=== PATIENT | female | born 1985 | race African-American/Black ===

== ENCOUNTER 2017-07-30 13:22 | Emergency (ER) | payer MEDICAID ==
[2017-07-30 13:39] VITALS: BP 117/77
[2017-07-30 14:14] LABS: APPEARANCE,URINE CLOUDY; BILIRUBIN,URINE NEGATIVE (NEGATIVE); COLOR,URINE YELLOW; GLUCOSE, URINE NEGATIVE (NEGATIVE); KETONES,URINE TRACE mg/dL (NEGATIVE); LEUKOCYTE ESTERASE,URINE LARGE (NEGATIVE); NITRITE,URINE NEGATIVE (NEGATIVE); PROTEIN,URINE 100 mg/dL (NEGATIVE); URINE SPECIFIC GRAVITY 1.015; UROBILINOGEN,URINE NEGATIVE mg/dL (<2.0)
--- NOTE | 2017-07-30 14:46 | ER Document Report ---
HPI - HPI Pain Level: 5 Notes: Patient is a 32-year-old female no significant past medical history who presents to the ED complaining of urinary burning, urgency, frequency, voiding small amounts 2-3 days. Patient states that she still eating and drinking without difficulties. She is having normal bowel movements. She has not had any back or flank pain. She denies any drug allergies, smoking, IV drug use. She has no other concerns or complaints at this time. Patient states that she does not have any concern of STD or STI at this time. Denies any headache, fever, neck pain, URI, sore throat, chest pain, palpitations, syncope, cough, shortness of breath, wheeze, dyspnea, abdominal pain, nausea/vomiting/diarrhea, loss of control of bowel or bladder, numbness/tingling, saddle anesthesia, muscle paralysis/weakness, or rash. - ROS Systems Reviewed and Negative: Yes All other systems reviewed and negative - REPRODUCTIVE Reproductive: DENIES: : Past Medical History - Social History Smoking Status: Never Smoker Family History: Reviewed & Not Pertinent Patient has suicidal ideation: No Patient has homicidal ideation: No Pulmonary Medical History: Denies: Hx Tuberculosis Neurological Medical History: Reports: Hx Migraine Renal/ Medical History: Denies: Hx Peritoneal Dialysis Musculoskeltal Medical History: Denies Hx Arthritis Past Surgical History: Reports: Hx Hysterectomy - 01/2013 - Immunizations Immunizations up to date: Yes Hx Diphtheria, Pertussis, Tetanus Vaccination: Yes Vertical Provider Document - CONSTITUTIONAL Agree With Documented VS: Yes Notes: PHYSICAL EXAMINATION: GENERAL: Well-appearing, well-nourished and in no acute distress. LUNGS: Breath sounds clear to auscultation bilaterally and equal. No wheezes rales or rhonchi. HEART: Regular rate and rhythm without murmurs, rubs, gallops. ABDOMEN: Soft, nontender, nondistended abdomen. No guarding, no rebound. No masses appreciated. Normal bowel sounds present. No CVA tenderness bilaterally. Extremities: No cyanosis, clubbing, or edema b/l. Peripheral pulses 2+. Capillary refill less than 3 seconds. NEUROLOGICAL: Normal speech, normal gait. Normal sensory, motor exams PSYCH: Normal mood, normal affect. SKIN: Warm, Dry, normal turgor, no rashes or lesions noted. - INFECTION CONTROL TRAVEL OUTSIDE OF THE [place] IN LAST 30 DAYS: No Course - Re-evaluation Re-evalutation: 07/30/17 14:51 Patient is an afebrile, well-hydrated, 32-year-old female who presents to the ED with an acute UTI. Vitals are acceptable. PE is otherwise unremarkable. See urinalysis results. Urine cultures pending. No other labs or imaging warranted at this time based on H&P. Patient is tolerating p.o. without difficulties. She has no significant tachycardia, tachypnea, or hypoxia. Patient's abdomen is otherwise soft and nontender. Low suspicion for any severe dehydration, sepsis, meningitis, acute abdomen, or other systemic emergent condition at this time. I will send her home with prescription for Cipro. Conservative measures otherwise for symptoms. Recheck with your PCM in 3-5 days. Return to the ED with any worsening/concerning symptoms otherwise as reviewed discharge. Patient is in agreement. - Vital Signs Vital signs: Temp Pulse Resp BP Pulse Ox 98.1 F 79 20 117/77 100 07/30/17 13:35 07/30/17 13:35 07/30/17 13:35 07/30/17 13:35 07/30/17 13:35 - Laboratory Laboratory results interpreted by me: 07/30/17 13:23 Urine Protein 100 H Urine Ketones TRACE H Urine Blood MODERATE H Ur Leukocyte Esterase LARGE H Discharge - Discharge Clinical Impression: UTI (urinary tract infection) Qualifiers: Urinary tract infection type: site unspecified Hematuria presence: with hematuria Qualified Code(s): N39.0 - Urinary tract infection, site not specified Condition: Stable Disposition: HOME, SELF-CARE Instructions: Urinary Tract Infection ([facility]) Additional Instructions: Push fluids (i.e. water, cranberry juice) Proper hygenic technique Keep the skin clean Tylenol/ibuprofen as needed Take medications as directed F/u with your PCM in 3-5 days for a recheck Consider consult with a Urologist for ongoing/worsening symptoms. Return to the ED with any worsening symptoms and/or development of fever, headache, chest pain, palpitations, syncope, shortness of breath, trouble breathing, abdominal pain, n/v/d, blood in stool/urine, loss of control of bowel /bladder, urinary retention, or other worsening symptoms that are concerning to you. Prescriptions: Ciprofloxacin HCl [Cipro 500 mg Tablet] 500 mg PO BID #14 tablet Referrals: [facility] [Provider Group] - Follow up as needed
== END 2017-07-30 14:50 | disposition home or self-care (01) ==
LOC: ER 13:22
DX: N39.0 Urinary tract infection, site not specified (principal); Z90.710 Acquired absence of both cervix and uterus
CPT/HCPCS: 81001; 87086; 87088; 87186; 99283

== ENCOUNTER 2017-10-09 23:59 | Emergency (ER) | payer MEDICAID ==
[2017-10-10] MEDS ORDERED: LIDOCAINE 4%/TETRACAINE 0.5%/EPI 0.18% 5 ML TOPICAL SOLN TOP ONE (01:11)
--- NOTE | 2017-10-10 01:13 | ER Document Report ---
ED Head/Face/Scalp Injury - General Chief Complaint: Nose Problem Stated Complaint: FALL,NOSE INJURY Time Seen by Provider: 10/10/17 00:58 Mode of Arrival: Ambulatory Information source: Patient Notes: 32-year-old female presents to ED for complaint of pain and lacerations to those after she states she fell off a ladder while hanging up curtains and landed on her nose. She states she has had a broken nose in the past and had surgery on it. Patient denies any loss of consciousness or any other injuries besides the nose injury. Patient is alert and oriented respirations regular and unlabored speaking in full sentences and walks with a even steady gait. TRAVEL OUTSIDE OF THE [place] IN LAST 30 DAYS: No - HPI Patient complains to provider of: Contusion, Injury, Laceration, Pain, Swelling Injury to: Nose Location of problem: Nose Occurred: Just prior to arrival Where: Indoors Timing: Still present Context: Fell, Laceration, Swelling Loss consciousness: No loss of consciousness Remembers: Injury, Coming to hospital - Related Data Allergies/Adverse Reactions: No Known Allergies Allergy (Verified 02/14/14 15:46) Past Medical History - General Information source: Patient - Social History Smoking Status: Current Every Day Smoker Cigarette use (# per day): Yes - 3 Chew tobacco use (# tins/day): No Smoking Education Provided: Yes - 4 min Frequency of alcohol use: None Drug Abuse: None Lives with: Family Family History: Reviewed & Not Pertinent Patient has suicidal ideation: No Patient has homicidal ideation: No - Past Medical History Cardiac Medical History: Reports: None Pulmonary Medical History: Reports: None EENT Medical History: Reports: Nose - nasal fx Neurological Medical History: Reports: Hx Migraine Endocrine Medical History: Reports: None Renal/ Medical History: Reports: None Malignancy Medical History: Reports: None GI Medical History: Reports: None Musculoskeletal Medical History: Reports Hx Musculoskeletal Trauma - nosal fx Skin Medical History: Reports None Psychiatric Medical History: Reports: None Traumatic Medical History: Reports: Hx Fractures - nasal Infectious Medical History: Reports: None Past Surgical History: Reports: Hx Hysterectomy - 01/2013, Hx Nose Surgery - nasal fx repair - Immunizations Immunizations up to date: Yes Hx Diphtheria, Pertussis, Tetanus Vaccination: Yes Review of Systems - Review of Systems Constitutional: No symptoms reported EENT: Nose pain - laceration to bridge of nose Cardiovascular: No symptoms reported Respiratory: No symptoms reported Gastrointestinal: No symptoms reported Genitourinary: No symptoms reported Female Genitourinary: No symptoms reported Musculoskeletal: No symptoms reported Skin: No symptoms reported Hematologic/Lymphatic: No symptoms reported Neurological/Psychological: No symptoms reported -: Yes All other systems reviewed and negative Physical Exam - Vital signs Vitals: Temp Pulse Resp BP Pulse Ox 98.6 F 89 18 127/88 H 96 10/10/17 00:21 10/10/17 00:21 10/10/17 00:21 10/10/17 00:21 10/10/17 00:21 Interpretation: Normal - General General appearance: Appears well, Alert - HEENT Head: Ecchymosis, Open wounds - bridge of nose, Tenderness Eyes: Normal Conjunctiva: Normal Cornea: Normal Eyelashes: Normal Pupils: PERRL Ears: Normal External canal: Normal Tympanic membrane: Normal Sinus: Normal Nasal: Swelling, Other - Tried blood in nasal passage Mouth/Lips: Normal Mucous membranes: Normal Pharynx: Normal Neck: Normal - Respiratory Respiratory status: No respiratory distress Chest status: Nontender Breath sounds: Normal Chest palpation: Normal - Cardiovascular Rhythm: Regular Heart sounds: Normal auscultation Murmur: No - Abdominal Inspection: Normal Distension: No distension Bowel sounds: Normal Tenderness: Nontender Organomegaly: No organomegaly - Back Back: Normal, Nontender - Extremities General upper extremity: Normal inspection, Nontender, Normal color, Normal ROM , Normal temperature General lower extremity: Normal inspection, Nontender, Normal color, Normal ROM , Normal temperature, Normal weight bearing. No: Dejon's sign - Neurological Neuro grossly intact: Yes Cognition: Normal Orientation: AAOx4 Kyle Coma Scale Eye Opening: Spontaneous [place] Coma Scale Verbal: Oriented [place] Coma Scale Motor: Obeys Commands [place] Coma Scale Total: 15 Speech: Normal Motor strength normal: LUE, RUE, LLE, RLE Sensory: Normal - Psychological Associated symptoms: Normal affect, Normal mood - Skin Skin Temperature: Warm Skin Moisture: Dry Skin Color: Normal Skin Turgor: Edematous Location of irregularity: Face - Bridge of nose Irregularity with: Swelling, Tenderness Course - Re-evaluation Re-evalutation: 10/10/17 02:49 X-ray results discussed with patient and patient was instructed to follow-up with primary doctor and a ENT specialist. There is a bilateral nasal bone fracture with superficial lacerations to bilateral sides of the nose. Lacerations were Dermabond and Steri-Stripped shut and patient was given instructions for wound care. Patient was placed on Keflex first dose given in the ER. Patient was discharged home with the [place] dispense pack for pain and instructed on use of ice. - Vital Signs Vital signs: Temp Pulse Resp BP Pulse Ox 98.7 F 94 15 128/88 H 96 10/10/17 02:26 10/10/17 02:26 10/10/17 02:26 10/10/17 02:10/10/17 02:26 - Diagnostic Test Radiology reviewed: Image reviewed, Reports reviewed Discharge - Discharge Clinical Impression: Fall Qualifiers: Encounter type: initial encounter Qualified Code(s): W19.XXXA - Unspecified fall, initial encounter Nasal fracture Qualifiers: Encounter type: initial encounter Fracture type: closed Qualified Code(s): S02.2XXA - Fracture of nasal bones, initial encounter for closed fracture Facial laceration Qualifiers: Encounter type: initial encounter Qualified Code(s): S01.81XA - Laceration without foreign body of other part of head, initial encounter Condition: Stable Disposition: HOME, SELF-CARE Additional Instructions: Fracture of the Nose You have a fractured nose. The examination shows no evidence that the nose needs to be "set" or operated on. However, the physician must recheck the nose once the swelling has decreased. The final decision about straightening of the bones or surgery can be made once the swelling resolves. This usually takes three to five days. Rest in a reclining chair. Cold pack the nose for the next 24 to 36 hours. Do not blow the nose. This may increase the swelling or cause further bleeding. If you have painful swelling inside the nose or exquisite tenderness when the tip of the nose is touched, you should call the doctor at once or return for re-evaluation. You should also contact the doctor if you develop fever, purulent nasal drainage, increasing pain in the face, or problems with vision. Facial Laceration A laceration on the face usually heals quickly. Our treatment goal will be to avoid an unsightly scar or stitch-zuniga. Your cut has been closed with the best techniques to avoid scarring, but a great deal depends on how well you protect the laceration -- and on your inherited tendency to scar. As facial cuts are usually caused by a blunt injury, it's usually best to rest for a day to avoid swelling. Do not allow any bumping or rubbing of the area. Keep the stitches dry. Follow the treatment plan the doctor has discussed with you and DO NOT DELAY getting the stitches out. Once stitches are removed, continue to protect the area from trauma and sunlight (use a sunscreen) for about six months. If any signs of infection occur (swelling, redness, increasing tenderness, red streaks, tender lumps in the neck or near the ear on the side of the laceration, or fever), see the doctor immediately. LACERATION CARE: Your laceration has been sutured to keep the skin edges aligned during healing. The time of suture removal depends on the nature and location of your cut. Please follow the care instructions the doctor has outlined for you and return for further care, according to the schedule you've been given. Keep the wound and dressing clean. Unless you were told otherwise, you may shower daily, blotting the wound dry with a clean, unused towel. At other times, If the dressing gets wet or blood soaked, remove it and blot the wound dry, then reapply a new dressing. Unless you were instructed otherwise, dressings should be changed at least daily. If any signs of infection occur (swelling, redness, drainage, increasing tenderness, red streaks, tender lumps in the armpit or groin above the laceration, or fever), see the doctor immediately. SOAP CLEANSING: Gently wash the wound daily using a mild soap (like Ivory, Phisoderm, Neutrogena). Use warm water, rubbing gently until all debris, ooze, and crusting have been washed from the wound. Allow to dry briefly (about 10 minutes) after cleaning. Repeat this cleansing at least three times a day for the first two days and then once or twice a day. Dermabond (Skin Adhesive Closure) Skin adhesive (such as Dermabond) is a quick-drying glue that remains slightly flexible while it holds wound edges together. It can substitute for stitches on some cuts. The film will usually fall off the skin after 5 to 10 days. Keep the wound area clean and dry. Do not soak or scrub the wound. Don't swim. You can shower briefly after 24 hours. Gently blot the area dry with a soft towel. Don't apply ointments. If there is a dressing, change it immediately if it gets wet. Do not place tape directly over the adhesive film, because the tape may pull the film off your skin as you remove it. Don't bump the wound area. If there's risk of injury, keep the area well- padded. Avoid stretching of the skin. Do not scratch or pick at the adhesive film. Avoid prolonged exposure to sunlight or tanning lamps. Return if there is increasing pain, swelling, redness, or drainage, or if the wound edges seem to open or separate. Care of Steri-Strip Closure Your cut has been closed up with a special surgical tape. For this type of cut, it can replace stitches. You must protect the wound just as you would with stitches, however. For the first few days, keep the wound area completely dry. This also means you should avoid activity which makes you sweat. Do not move the area if motion stretches or wrinkles the strips. Don't allow the area to be bumped -- if bleeding occurs, the blood can make the strips loosen. The strips are somewhat waterproof. After a few days, the physician may allow you to shower. Be sure to ask if it's OK. Do not remove the tape until it peels off by itself. At that time, the wound should be healed. ORAL NARCOTIC MEDICATION: You have been given a norco dispense pack for pain control. This medication is a narcotic. It's best taken with food, as nausea can result if taken on an empty stomach. Don't operate machinery or drive within six hours of taking this medication. Do not combine this medicine with alcohol, or with any medication which can cause sedation (such as cold tablets or sleeping pills) unless you get permission from the physician. Narcotics tend to cause constipation. If possible, drink plenty of fluids and eat a diet high in fiber and fruits. These follow-up with your primary doctor in 3 to days to check the wound healing. FOLLOW-UP CARE: If you have been referred to a physician for follow-up care, call the physician s office for an appointment as you were instructed or within the next two days. If you experience worsening or a significant change in your symptoms, notify the physician immediately or return to the Emergency Department at any time for re-evaluation. Prescriptions: Cephalexin Monohydrate [Keflex 500 mg Capsule] 500 mg PO Q6H 5 Days capsule Forms: Elevated Blood Pressure, Smoking Cessation Education Referrals: JEANA CAMPUZANO PA-C [Primary Care Provider] - Follow up as needed [facility] [Provider Group] - Follow up as needed JEANA RODGERS DO [ASSOCIATE] - Follow up as needed
[2017-10-10] MEDS ORDERED: CEPHALEXIN 500 MG CAPSULE PO ONE (02:10)
[2017-10-10] MEDS ORDERED: HYDROCODONE/ACETAMINOPHEN 5-325 MG (6 TAB/ER DISP) PO PRN (02:18)
--- NOTE | 2017-10-10 02:26 | RADIOLOGY REPORT (SQ) ---
EXAM DESCRIPTION: XR NASAL BONES COMPLETED DATE/TME: 10/10/2017 01:08 CLINICAL HISTORY: 32 years, Female, fall, pain in nose COMPARISON: None. FINDINGS: 2 views of the nasal bones. Bilateral minimally displaced nasal bone fractures. Nasal septum appears midline. Paranasal sinuses are well aerated. Orbits appear intact. IMPRESSION: 1. Minimally displaced bilateral nasal bone fractures. 2010 [employer]- All Rights Reserved
[2017-10-10 02:33] VITALS: BP 128/88
== END 2017-10-10 02:34 | disposition home or self-care (01) ==
LOC: ER 23:59
DX: S02.2XXA Fracture of nasal bones, initial encounter for closed fracture (principal); S01.81XA Laceration without foreign body of other part of head, initial encounter; W11.XXXA Fall on and from ladder, initial encounter; F17.210 Nicotine dependence, cigarettes, uncomplicated
CPT/HCPCS: 99406; 99283; 70160; J3490

== ENCOUNTER 2017-11-20 06:29 | Day surgery (SDC) | payer MEDICAID ==
[2017-11-20] MEDS ORDERED: FENTANYL CITRATE INJ/PF 100 MCG/2 ML AMPUL ONE (06:43)
[2017-11-20] MEDS ORDERED: CARBOXYMETHYLCELLULOSE SOD 0.5% 0.4 ML DROPERETTE ONE (06:43)
[2017-11-20] MEDS ORDERED: MIDAZOLAM 2 MG/2 ML INJ ONE (06:43)
[2017-11-20] MEDS ORDERED: LIDOCAINE 2% INJ-PF (20 MG/ML) 10 ML AMPUL ONE (06:44)
[2017-11-20] MEDS ORDERED: DEXAMETHASONE SOD PHOS INJ 10 MG/1 ML VIAL ONE (06:44)
[2017-11-20] MEDS ORDERED: PROPOFOL INJ 200 MG/20 ML VIAL IV ONE (06:44)
[2017-11-20] MEDS ORDERED: ONDANSETRON HCL INJ/PF 4 MG/2 ML SDV ONE (06:44)
[2017-11-20] MEDS ORDERED: BUPIVACAINE HCL 0.5%/EPI 1:200000 INJ 1.8 ML CARTRIDGE ONE (08:03)
[2017-11-20] MEDS ORDERED: CEFAZOLIN 2 GM/D5W RTU 2 GM/50 ML RTUPB IV PRN (08:16)
--- NOTE | 2017-11-21 15:01 | [facility] OPERATIVE REPORT E ---
[facility] Operative Report NAME: RAMIRO VO AGE: 32Y DATE OF SURGERY: 11/20/2017 ROOM: PREOPERATIVE DIAGNOSES: 1. NASAL FRACTURES. 2. NASAL DEFORMITIES, ACQUIRED. 3. NASAL SEPTAL DEVIATION, ACQUIRED. 4. INFERIOR TURBINATE HYPERTROPHY. 5. NASAL PAIN. POSTOPERATIVE DIAGNOSES: 1. NASAL FRACTURES. 2. NASAL DEFORMITIES, ACQUIRED. 3. NASAL SEPTAL DEVIATION, ACQUIRED. 4. INFERIOR TURBINATE HYPERTROPHY. 5. NASAL PAIN. OPERATION: CLOSED REDUCTION OF NASAL FRACTURES WITH STABILIZATION. SURGEON: JEANA RODGERS D.O. ANESTHESIA: General mask anesthesia. ANESTHESIA STAFF: EMIL Mosqueda ESTIMATED BLOOD LOSS: 1 mL FLUID: 400 mL COMPLICATIONS: None. DRAINS: None. SPONGE COUNT: Verified. MATERIALS FORWARDED SPECIMEN: None. FINDINGS: 1. The patient was noted to have multiple nasal dorsal irregularities involving bone and cartilage. 2. The patient also had multiple scattered scars over the nose, forehead, and face that were from previous injuries, and all appeared to be well healed and were with a variety of hyper and hypopigmentation changes. 3. Nasal septal deviation and no septal hematoma or seroma was noted. 4. Bilateral turbinate hypertrophy. INDICATIONS: This is a 32-year-old -[place] female who was referred by the [place] emergency room for nasal fractures with resulting nasal deformities and nasal pain. The patient was seen and evaluated in the [place] otolaryngology office. 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 She was evaluated in the [place] emergency department. She did not have any other facial injuries or complaint of other pain and there were no other concerns noted in the emergency room except for nasal fractures with resulting nasal deformities. The patient reports that she had previously injured/fractured her nose. This resulted in acquired nasal deformities as well. After extensive discussion with the patient, recommendation and plan was made to proceed with a closed reduction of nasal fractures. The patient was also well aware that, as she was approximately 1 month out from her date of most recent injury to her nose, undergoing a closed reduction of nasal fractures may not result in any improvement. She also did not want to undergo the procedure in the clinic setting, but preferred the procedure be performed in the operating room setting. The procedure and all of its risks and complications were all discussed in detail with the patient. She voiced an understanding of all that was discussed, and was in agreement, and desire to proceed with the procedure. PROCEDURE: The patient was taken to the main operating room and placed on the operating room table in the supine position. Appropriate monitors were placed. Under mask access, general mask anesthesia was induced. The patient underwent a nasal prep with injection of local anesthetic with epinephrine to establish a nasal block. Two Afrin-soaked neuro patties were placed per nasal passage. The patient was then prepped and draped in the usual fashion for nasal surgery/procedures. At this point, the neuro patties were removed followed by use of a Tia elevator to mobilize the bony nasal pyramid. The fracture elements could be palpated and were mobilized with reasonable contour being achieved. At this point, the patient's nose was cleaned and dried followed by placement of Mastisol and Steri-Strips for external stabilization and support. The patient was then returned to the anesthesia staff and was allowed to emerge from general mask anesthesia. The patient was next transported to the post anesthesia recovery unit in stable condition. There were no complications. DICTATING PHYSICIAN: JEANA RODGERS D.O. [id number] PHY#: [id number] ID: [id number] JOB#: [id number] ACCT: [id number] cc:JEANA RODGERS D.O. > MTDD
== END 2017-11-20 10:08 | disposition home or self-care (01) ==
LOC: SC 06:29
PROVIDERS: ATTEND Otolaryngology
DX: S02.2XXA Fracture of nasal bones, initial encounter for closed fracture (principal); W17.89XA Other fall from one level to another, initial encounter; Y93.E9 Activity, other interior property and clothing maintenance; M95.0 Acquired deformity of nose; J34.2 Deviated nasal septum; J34.3 Hypertrophy of nasal turbinates; J34.89 Other specified disorders of nose and nasal sinuses; I10 Essential (primary) hypertension; G47.30 Sleep apnea, unspecified
CPT/HCPCS: 21320; J2250; J3490 ×3; J3010; J2405; J2704; J1100; J0690; 160

== ENCOUNTER 2018-02-11 12:40 | Emergency (ER) | payer MEDICAID ==
[2018-02-11] MEDS ORDERED: LIDOCAINE 5% (700 MG) TRANSDERMAL ADH..PATCH TP ONE (15:57)
[2018-02-11 15:59] LABS: APPEARANCE,URINE CLOUDY; BILIRUBIN,URINE NEGATIVE (NEGATIVE); COLOR,URINE YELLOW; GLUCOSE, URINE NEGATIVE (NEGATIVE); KETONES,URINE NEGATIVE (NEGATIVE); LEUKOCYTE ESTERASE,URINE LARGE (NEGATIVE); NITRITE,URINE POSITIVE (NEGATIVE); PROTEIN,URINE NEGATIVE (NEGATIVE); URINE SPECIFIC GRAVITY 1.013
--- NOTE | 2018-02-11 16:22 | ER Document Report ---
HPI - HPI Time Seen by Provider: 02/11/18 15:20 Pain Level: 4 Notes: Patient is a 32-year-old female who presents with multiple complaints today. Patient complains of right leg pain that has been present since she states she was a little girl. Patient says the pain has been worse since 2007. She states that she has a primary care provider at [facility] however she has not mentioned this to them. Patient also reports dysuria, frequency and urgency. Patient reports she has a history of UTIs in the past, has not had any fevers lately unsure if she has a UTI today. - REPRODUCTIVE Reproductive: DENIES: : Past Medical History - General Information source: Patient - Social History Smoking Status: Never Smoker Frequency of alcohol use: None Drug Abuse: None Family History: Reviewed & Not Pertinent - Past Medical History Cardiac Medical History: Denies: Hx Heart Attack, Hx Hypertension Pulmonary Medical History: Denies: Hx Asthma, Hx Tuberculosis Neurological Medical History: Reports: Hx Migraine. Denies: Hx Cerebrovascular Accident, Hx Seizures Renal/ Medical History: Denies: Hx Peritoneal Dialysis GI Medical History: Denies: Hx Hepatitis, Hx Hiatal Hernia, Hx Ulcer Musculoskeletal Medical History: Denies Hx Arthritis, Reports Hx Musculoskeletal Trauma - nosal fx Traumatic Medical History: Reports: Hx Fractures - nasal Infectious Medical History: Denies: Hx Hepatitis Past Surgical History: Reports: Hx Hysterectomy, Hx Nose Surgery - nasal fx repair. Denies: Hx Mastectomy, Hx Open Heart Surgery, Hx Pacemaker - Immunizations Immunizations up to date: Yes Hx Diphtheria, Pertussis, Tetanus Vaccination: Yes Vertical Provider Document - CONSTITUTIONAL Notes: PHYSICAL EXAMINATION: GENERAL: Well-appearing, well-nourished and in no acute distress. HEAD: Atraumatic, normocephalic. EYES: Pupils equal round extraocular movements intact, conjunctiva are normal. ENT: Nares patent NECK: Normal range of motion LUNGS: No respiratory distress Musculoskeletal: Normal range of motion, mild tenderness to palpation to the right upper thigh on the anterior portion, no enlarged lymph nodes palpable. NEUROLOGICAL: Normal speech, normal gait. PSYCH: Normal mood, normal affect. SKIN: Warm, Dry, normal turgor, no rashes or lesions noted. - INFECTION CONTROL TRAVEL OUTSIDE OF THE [place] IN LAST 30 DAYS: No Course - Re-evaluation Re-evalutation: Patient diagnosed with urinary tract infection based upon the urinalysis results , see labs. Patient be placed on p.o. antibiotics. Patient will also be given lidocaine patches for her leg pain, patient encouraged to follow-up with her primary care provider considering this is been going on since she was a little girl. Patient does not have any risk factors for DVT so a venous Doppler ultrasound is not indicated. - Vital Signs Vital signs: Temp Pulse Resp BP Pulse Ox 98.3 F 76 18 120/88 H 98 02/11/18 13:10 02/11/18 13:10 02/11/18 13:10 02/11/18 13:10 02/11/18 13:10 - Laboratory Laboratory results interpreted by me: 02/11/18 15:35 Urine Blood SMALL H Urine Nitrite POSITIVE H Urine Urobilinogen 4.0 H Ur Leukocyte Esterase LARGE H Discharge - Discharge Clinical Impression: Leg pain Qualifiers: Laterality: right Qualified Code(s): M79.604 - Pain in right leg UTI (urinary tract infection) Qualifiers: Urinary tract infection type: site unspecified Hematuria presence: without hematuria Qualified Code(s): N39.0 - Urinary tract infection, site not specified Condition: Stable Disposition: HOME, SELF-CARE Additional Instructions: URINARY TRACT INFECTION: Your evaluation indicates that you have a urinary tract infection. This is due to germs growing in the bladder. This is a common problem. This infection usually responds quickly to antibiotics. Your antibiotic should be taken exactly as prescribed. Drink plenty of fluids -- three to four quarts a day. Occasionally, a bladder anesthetic will be prescribed to help stop the feeling of urgency until the antibiotic has a chance to clear the infection. This may cause your urine to be dark orange. Certain urine infections require a culture. If the doctor obtained a culture, the results will be back in two days. You should call to see if a change in treatment is needed. A repeat urinalysis after you finish treatment is often recommended. The physician will let you know if further testing is required. Call the doctor if you develop fever, chills, flank pain, inability to urinate, or blood in the urine. ANTIBIOTIC THERAPY: You have been given an antibiotic prescription. It's important that you take all the medication, unless instructed otherwise by your physician. Failure to complete the entire course can result in relapse of your condition. Common side effects of antibiotics include nausea, intestinal cramping, or diarrhea. Women may develop vaginal yeast infections, and babies can get yeast (thrush) in the mouth following the use of antibiotics. Contact your physician if you develop significant side effects from this medication. Allergy to this antibiotic can result in hives, wheezing, faintness, or itching. If symptoms of allergy occur, stop the medication and call the doctor. CEPHALEXIN: The antibiotic you've been prescribed is a member of the cephalosporin class. This type of antibiotic covers a wide variety of infections, including those of the skin, lungs, and urinary tract. It's useful for staph infections. This antibiotic is slightly similar to the penicillin family. In rare cases , a person who is allergic to penicillin will also be allergic to this medication. If you have had a severe allergic reaction to penicillin, and have not taken this antibiotic since that time, notify your doctor. Antibiotics which cover many germs ("broad spectrum" antibiotics) are more likely to cause diarrhea or "yeast" infections. Women prone to vaginal yeast problems may suffer an attack after taking this antibiotic. In infants, oral thrush (white spots "stuck" on the cheek) or yeast diaper rash may result. See your doctor if these problems occur. Call at once if you develop itching, hives , shortness of breath, or lightheadedness. FOLLOW-UP CARE: If you have been referred to a physician for follow-up care, call the physician s office for an appointment as you were instructed or within the next two days. If you experience worsening or a significant change in your symptoms, notify the physician immediately or return to the Emergency Department at any time for re-evaluation. The urine will be collected from you today appears to have a urinary tract infection. Please start taking the Keflex, this is an antibiotic, complete the entire course even if you are feeling better. Use the Lidoderm patches to your leg. Please also take 600 mg of ibuprofen every 6 hours for pain and inflammation. Please call and make a follow-up appointment with your primary care provider for a follow-up appointment. Prescriptions: Cephalexin [Cephalexin 500 MG Tablet] 1 tab PO QID #28 tablet Lidocaine [Lidoderm 5% (700 mg) Transdermal Patch] 1 patch TP DAILY #30 adh..patch Forms: Return to Work Referrals: JUSTEN,JEANA, PA-C [Primary Care Provider] - Follow up as needed
[2018-02-11 16:28] VITALS: BP 131/82
== END 2018-02-11 16:33 | disposition home or self-care (01) ==
LOC: ER 12:40
DX: M79.604 Pain in right leg (principal); N39.0 Urinary tract infection, site not specified; Z90.710 Acquired absence of both cervix and uterus
CPT/HCPCS: 99283; 87086; 81025; 87088; 81001; J3490; 87186

== ENCOUNTER 2019-03-23 12:51 | Emergency (ER) | payer MEDICAID ==
[2019-03-23 12:56] VITALS: BP 133/87
[2019-03-23] MEDS ORDERED: HYDROCODONE/ACETAMINOPHEN 5-325 MG TABLET PO ONE (12:59)
--- NOTE | 2019-03-23 13:09 | ER Document Report ---
ED Medical Screen (RME) - General Chief Complaint: Wrist Injury Stated Complaint: WRIST PAIN Time Seen by Provider: 03/23/19 12:59 Primary Care Provider: JEANA CAMPUZANO PA-C [Primary Care Provider] - Follow up as needed Notes: Patient is a 33-year-old female with no past medical history presents to the emergency department with left wrist/forearm pain. She was doing donuts in a golf cart and ended up hurting her arm. She is up to date on her tetanus immunizations. Exam: Abrasion noted to left forearm. Mild deformity noted to left forearm. I have greeted and performed a rapid initial assessment of this patient. A comprehensive ED assessment and evaluation of the patient, analysis of test results and completion of medical decision making process will be conducted by an additional ED providers. TRAVEL OUTSIDE OF THE [place] IN LAST 30 DAYS: No - Related Data Allergies/Adverse Reactions: No Known Allergies Allergy (Verified 02/11/18 13:01) Past Medical History - Social History Chew tobacco use (# tins/day): No Frequency of alcohol use: None Drug Abuse: None - Past Medical History Cardiac Medical History: Denies: Hx Heart Attack, Hx Hypertension Pulmonary Medical History: Denies: Hx Asthma, Hx Tuberculosis Neurological Medical History: Reports: Hx Migraine. Denies: Hx Cerebrovascular Accident, Hx Seizures Renal/ Medical History: Denies: Hx Peritoneal Dialysis GI Medical History: Denies: Hx Hepatitis, Hx Hiatal Hernia, Hx Ulcer Musculoskeltal Medical History: Denies Hx Arthritis, Reports Hx Musculoskeletal Trauma - nosal fx Traumatic Medical History: Reports: Hx Fractures - nasal Infectious Medical History: Denies: Hx Hepatitis Past Surgical History: Reports: Hx Hysterectomy, Hx Nose Surgery - nasal fx repair. Denies: Hx Mastectomy, Hx Open Heart Surgery, Hx Pacemaker - Immunizations Immunizations up to date: Yes Hx Diphtheria, Pertussis, Tetanus Vaccination: Yes Physical Exam - Vital signs Vitals: Temp Pulse Resp BP Pulse Ox 98.3 F 85 20 133/87 H 99 03/23/19 12:54 03/23/19 12:54 03/23/19 12:54 03/23/19 12:54 03/23/19 12:54 Course - Vital Signs Vital signs: Temp Pulse Resp BP Pulse Ox 98.3 F 85 20 133/87 H 99 03/23/19 12:54 03/23/19 12:54 03/23/19 12:54 03/23/19 12:54 03/23/19 12:54 Doctor's Discharge - Discharge Referrals: JEANA CAMPUZANO PA-C [Primary Care Provider] - Follow up as needed
--- NOTE | 2019-03-23 13:38 | RADIOLOGY REPORT (SQ) ---
EXAM DESCRIPTION: WRIST LEFT 3 VIEWS COMPLETED DATE/TIME: 03/23/2019 1:28 pm REASON FOR STUDY: trauma COMPARISON: None. NUMBER OF VIEWS: Three views. TECHNIQUE: AP, lateral, and oblique radiographic images acquired of the left wrist. LIMITATIONS: None. FINDINGS: MINERALIZATION: Normal. BONES: There is fracture of the radial styloid there is nondisplaced. There is fracture of the ulnar styloid. SOFT TISSUES: No soft tissue swelling. No foreign body. OTHER: No other significant finding. IMPRESSION: Radial and ulnar styloid fractures. TECHNICAL DOCUMENTATION: JOB ID: [id number] [employer]- All Rights Reserved Reading location - IP/workstation name: [email or web address]
--- NOTE | 2019-03-23 13:39 | RADIOLOGY REPORT (SQ) ---
EXAM DESCRIPTION: FOREARM LEFT COMPLETED DATE/TIME: 03/23/2019 1:28 pm REASON FOR STUDY: trauma COMPARISON: None. NUMBER OF VIEWS: Two views. TECHNIQUE: Two radiographic images acquired of the left forearm, including elbow and wrist in at [address] one projection. LIMITATIONS: None. FINDINGS: MINERALIZATION: Normal. BONES: No acute fracture. No worrisome bone lesions. SOFT TISSUES: No obvious swelling or foreign body. OTHER: No other significant finding. IMPRESSION: No acute finding. Radial and ulnar styloid fractures are seen on the wrist series. TECHNICAL DOCUMENTATION: JOB ID: [id number] [employer]- All Rights Reserved Reading location - IP/workstation name: [email or web address]
[2019-03-23] MEDS ORDERED: IBUPROFEN 600 MG TABLET PO ONE (14:21)
--- NOTE | 2019-03-23 14:23 | ER Document Report ---
HPI - HPI Time Seen by Provider: 03/23/19 12:59 Pain Level: 5 Context: -year-old female who presents to the emergency department with a chief complaint of left arm pain. She was doing donuts in a go-cart and ended up falling out of the go-cart and hurt her left arm. Denies hitting her head. Denies any loss of consciousness. Denies any past medical history. Does not take any medications. - ROS Systems Reviewed and Negative: Yes All other systems reviewed and negative - CONSTITUTIONAL Constitutional: DENIES: Fever, Chills - REPRODUCTIVE Reproductive: DENIES: : - MUSCULOSKELETAL Musculoskeletal: REPORTS: Extremity pain - left wrist - DERM Skin Problems: Abrasion - left wrist/forearm Past Medical History - General Information source: Patient - Social History Smoking Status: Never Smoker Chew tobacco use (# tins/day): No Frequency of alcohol use: None Drug Abuse: None Family History: Reviewed & Not Pertinent Patient has suicidal ideation: No Patient has homicidal ideation: No - Past Medical History Cardiac Medical History: Denies: Hx Heart Attack, Hx Hypertension Pulmonary Medical History: Denies: Hx Asthma, Hx Tuberculosis Neurological Medical History: Reports: Hx Migraine. Denies: Hx Cerebrovascular Accident, Hx Seizures Renal/ Medical History: Denies: Hx Peritoneal Dialysis GI Medical History: Denies: Hx Hepatitis, Hx Hiatal Hernia, Hx Ulcer Musculoskeletal Medical History: Denies Hx Arthritis, Reports Hx Musculoskeletal Trauma - nosal fx Traumatic Medical History: Reports: Hx Fractures - nasal Infectious Medical History: Denies: Hx Hepatitis Past Surgical History: Reports: Hx Hysterectomy, Hx Nose Surgery - nasal fx repair. Denies: Hx Mastectomy, Hx Open Heart Surgery, Hx Pacemaker - Immunizations Immunizations up to date: Yes Hx Diphtheria, Pertussis, Tetanus Vaccination: Yes Vertical Provider Document - CONSTITUTIONAL Agree With Documented VS: Yes Exam Limitations: No Limitations General Appearance: No Apparent Distress - INFECTION CONTROL TRAVEL OUTSIDE OF THE [place] IN LAST 30 DAYS: No - HEENT HEENT: Atraumatic, Normocephalic, PERRLA - RESPIRATORY Respiratory: Breath Sounds Normal, No Respiratory Distress - CARDIOVASCULAR Cardiovascular: Regular Rate, Regular Rhythm Pulses: Normal: Radial - MUSCULOSKELETAL/EXTREMETIES Musculoskeletal/Extremeties: Tender - left distal forearm near wrist, No Edema - NEURO Level of Consciousness: Awake, Alert, Appropriate Motor/Sensory: No Motor Deficit, No Sensory Deficit - DERM Integumentary: Warm, Dry, Rash - abrasian noted to left posterior, medial wrist Course - Re-evaluation Re-evalutation: 03/23/19 14:24 Patient has a radial and ulnar styloid fracture. She will be placed in a short arm posterior splint. She will follow-up with orthopedics. Ulnar pulses 2+. Capillary refill less than 3 seconds. Instructed the patient on ibuprofen and Tylenol use for pain relief. Follow-up precautions were given. Verbal discharge instructions were given to the patient. They verbalized understanding. They are stable for discharge. - Vital Signs Vital signs: Temp Pulse Resp BP Pulse Ox 98.3 F 85 20 133/87 H 99 03/23/19 12:54 03/23/19 12:54 03/23/19 12:54 03/23/19 12:54 03/23/19 12:54 Procedures - Immobilization Left Wrist Pre-Proc Neuro Vasc Exam: Normal Immobilizer type: Short Arm Posterior Performed by: PCT Post-Proc Neuro Vasc Exam: Normal, Unchanged from pre-exam Alignment checked and good: Yes Discharge - Discharge Clinical Impression: Radial styloid fracture Qualifiers: Encounter type: initial encounter Fracture type: open Open fracture type: open type I or II Fracture alignment: nondisplaced Laterality: left Qualified Code(s): S52.515B - Nondisplaced fracture of left radial styloid process, initial encounter for open fracture type I or II Fracture of ulnar styloid Qualifiers: Encounter type: initial encounter Fracture type: open Open fracture type: open type I or II Fracture alignment: nondisplaced Laterality: left Qualified Code(s): S52.615B - Nondisplaced fracture of left ulna styloid process, initial encounter for open fracture type I or II Condition: Good Disposition: HOME, SELF-CARE Additional Instructions: You were seen today in the emergency department with left arm pain. You have a fracture in your forearm close to your wrist. You are being placed in a splint. Please keep the splint on as much as possible. Please follow-up with orthopedics tomorrow in regards to this visit. You are also being started on antibiotics to prevent infection. Take Tylenol 1000 mg and ibuprofen 600 mg every 6 hours for your pain. Prescriptions: Amox Tr/Potassium Clavulanate [Augmentin 875-125 Tablet] 1 tab PO BID 7 Days #14 tablet Forms: Return to Work Referrals: JEANA CAMPUZANO PA-C [Primary Care Provider] - Follow up as needed EDUARD CAMEJO JR, [ACTIVE PROVISIONAL STAFF] - Follow up tomorrow LAURY RIVAS MD [ACTIVE PROVISIONAL STAFF] - Follow up tomorrow [facility] [Provider Group] - Follow up tomorrow
[2019-03-23] MEDS ORDERED: AMOXICILLIN TRIHYD 250 MG CAPSULE PO ONE (14:26)
== END 2019-03-23 14:45 | disposition home or self-care (01) ==
LOC: ER 12:51
DX: S52.515 Nondisplaced fracture of left radial styloid process (principal); S52.615B Nondisplaced fracture of left ulna styloid process, initial encounter for open fracture type I or II; V86.99XA Unspecified occupant of other special all-terrain or other off-road motor vehicle injured in nontraffic accident, initial encounter; Y93.89 Activity, other specified
CPT/HCPCS: 99283; 73090; 73110; 29125; J3490 ×2

== ENCOUNTER → 2020-02-28 | Outpatient (CLI) | payer MEDICAID ==
--- NOTE | 2020-02-28 11:02 | ER [facility] ASSESSMENT REPORT ---
Intake - In the Last 14 days Have you traveled outside [place]?: No Have you been in close contact with someone CONFIRMED: No Worked in Healthcare?: No - Symptoms Subjective Fever(Ridgely feverish): Yes Chills: No Muscule Aches: No Runny Nose: No Sore Throat: No Cough (New or worsening chronic cough): No Shortness of breath: No Nausea or Vomiting: No Headache: No Abdominal Pain: No Diarrhea(3 or more loose stools in last 24 hours): No - Do you have any of the following Chronic lung disease: Asthma or emphysema or COPD: No Cystic Fibrosis: No Diabetes: No High Blood Pressure: No Cardiovascular Disease: No Chronic Kidney Disease: No Chronic Liver Disease: No Chronic blood disorder like Sickle Cell Disease: No Weak immune system due to disease or medication: No Neurologic condition that limits movement: No Developmental delay - Moderate to Severe: No Recent (within past 2 weeks) or current : No Morbid Obesity (>100 pounds over ideal weight): No - Objective Temperature: 98.9 F Pulse Rate: 82 Respiratory Rate: 15 Blood Pressure: 145/97 O2 Sat by Pulse Oximetry: 99 Objective: Given above, testing performed: If Testing Performed: Test Specimen Type Sent to General - General Information source: Patient Notes: Patient presents to the [facility] with family members for screening for coronavirus. Patient reports having symptoms for the past 5 days including fever and loss of taste and smell. - Related Data Allergies/Adverse Reactions: No Known Allergies Allergy (Verified 02/11/18 13:01) Past Medical History - General Information source: Patient - Social History Family History: Reviewed & Not Pertinent - Past Medical History Cardiac Medical History: Denies: Hx Heart Attack, Hx Hypertension Pulmonary Medical History: Denies: Hx Asthma, Hx Tuberculosis Neurological Medical History: Reports: Hx Migraine. Denies: Hx Cerebrovascular Accident, Hx Seizures Renal/ Medical History: Denies: Hx Peritoneal Dialysis GI Medical History: Denies: Hx Hepatitis, Hx Hiatal Hernia, Hx Ulcer Musculoskeletal Medical History: Denies Hx Arthritis, Reports Hx Musculoskeletal Trauma - nosal fx Traumatic Medical History: Reports: Hx Fractures - nasal Infectious Medical History: Denies: Hx Hepatitis Past Surgical History: Reports: Hx Hysterectomy, Hx Nose Surgery - nasal fx repair Physical Exam - Notes Notes: The patient was evaluated during the global Covid 19 pandemic, and that diagnosis was suspected/considered upon their initial presentation. Their sarah luation, treatment and testing was consistent with current guidelines for patients who present with complaints or symptoms that may be related to Covid 19. Full physical exam could not be performed due to covid 19 isolation protocols. Constitutional: Nontoxic appearance, no acute distress Eyes: Nonicteric, extraocular movements intact, sclera clear ENT: Posterior pharynx clear without exudates Cardiovascular: Rate and rhythm regular, no JVD Respiratory: Breath sounds clear bilaterally, nonlabored breathing, no use of accessory muscles, no tachypnea Gastrointestinal: Abdomen not distended Muculoskeletal: Moves all extremities well Skin: Normal color Neuro: Awake alert oriented, normal speech Psych: Normal mood and affect Diagnostic Results Laboratory Results: Patient presents with symptoms worrisome for possible Covid 19. Patient does not have emergency worrying symptoms such as difficulty breathing, shortness of breath, chest pain, pressure, confusion or cyanosis. Patient appears suitable for discharge as they are not of an advanced age, do not have any chronic medical conditions such as diabetes, CAD, immune deficiency, chronic lung di sease or chronic kidney disease. Patient's vital signs are stable and patient is nontoxic in appearance. Good return precautions have been discussed with patient, patient verbalized understanding and is agreeable with discharge plan of care at this time. Patient Education/Counseling Counseling/Education: Patient was provided with discharge information including: As a person under investigation for Covid 19, the [place] department of Health and Human Services, division of public health advises you to adhere to the following guidance until your test results are reported to you. If your test result is positive, you will receive additional information from your provider and your local health department at that time. Remain at home until you are cleared by the health provider or public health authorities. Keep a log of visitors to your home, notify any visitors to your home of your isolation status. If you plan to move to a new address or leave the county, notify the local health department in your County. Call your doctor or seek care if you have an urgent medical need. Before seeking medical care, call ahead to get instructions from the provider before arriving at the medical office clinic or hospital. Notify them that you are being tested for the virus that causes Covid 19 so that arrangements can be made, as necessary, to prevent transmission to others in the healthcare setting. Next, notify the local health department in your county. If a medical emergency arises and you need to call 911, inform the first responders that you are being tested for the virus that causes Covid 19. Next, notify the local health department in your county. [facility] Discharge - Discharge Clinical Impression: Encounter for screening laboratory testing for COVID-19 virus Condition: Stable Disposition: Home; Selfcare
[2020-02-28 11:03] VITALS: BP 145/97
[2020-02-28 13:00] LABS: A TYPE INFLUENZA AG NEGATIVE (NEGATIVE); B INFLUENZA AG NEGATIVE (NEGATIVE)
== END ==
LOC: RDC 09:52
PROVIDERS: ATTEND Nurse Practitioner Family
DX: U07.1 COVID-19 (principal); R50.9 Fever, unspecified; R43.8 Other disturbances of smell and taste
CPT/HCPCS: 87070; 87880; 87635; 87804; C9803; 99201; 99211